=== PATIENT | female | born 1970 | race African-American/Black ===

== ENCOUNTER 2021-12-16 20:01 | Emergency (ER) | payer MEDICAID ==
[~2021-12-16] VITALS: Ht 172.7 cm; Wt 96.2 kg
[2021-12-17 00:47] VITALS: BP 127/67
[2021-12-17] MEDS: IBUPROFEN 600MG TABLET PO PRN (00:47)
[2021-12-17] MEDS ORDERED: IBUP-2029 PO (01:00)
== END 2021-12-17 01:08 | disposition home or self-care (01) ==
LOC: ER 20:01
DX: S80.02XA Contusion of left knee, initial encounter (principal); Z98.890 Other specified postprocedural states; V43.52XA Car driver injured in collision with other type car in traffic accident, initial encounter; Y93.89 Activity, other specified; Y92.414 Local residential or business street as the place of occurrence of the external cause
CPT/HCPCS: 73562; 81025; 99283

== ENCOUNTER 2024-12-02 07:55 | Emergency (ER) | payer MEDICAID ==
[~2024-12-02] VITALS: Ht 172.7 cm; Wt 82.0 kg
[~2024-12-02 07:55] MED LIST: IBUP-2029 PO
[2024-12-02 08:08] VITALS: TEMP 37.2; O2SAT 98
[2024-12-02] MEDS ORDERED: P20 PO (08:42)
[2024-12-02] MEDS ORDERED: ALBU18HF2 IH (08:42)
[2024-12-02] MEDS ORDERED: AZIT250T12 MT (08:42)
[2024-12-02 09:07] VITALS: BP 112/70; PULSE 79; RESP 16; O2SAT 100
== END 2024-12-02 09:22 | disposition home or self-care (01) ==
LOC: ER 07:55
DX: J06.9 Acute upper respiratory infection, unspecified (principal); Z79.899 Other long term (current) drug therapy; Z98.890 Other specified postprocedural states
CPT/HCPCS: 99283